=== PATIENT | male | born 1990 | race Caucasian/White ===

== ENCOUNTER 2022-02-08 08:29 | Emergency (ER) | payer MEDICAID ==
[~2022-02-08] VITALS: Ht 188 cm; Wt 75.3 kg
== END 2022-02-08 08:57 | disposition home or self-care (01) ==
LOC: ED 08:29
PROC: 2W2TX4Z Dressing of Left Foot using Bandage (ICD-10-PCS; principal; 2022-02-08)
DX: T25.222A Burn of second degree of left foot, initial encounter (principal); X16.XXXA Contact with hot heating appliances, radiators and pipes, initial encounter
CPT/HCPCS: 16020; 99283